=== PATIENT | male | born 1990 | race Caucasian/White ===

== ENCOUNTER 2017-11-25 08:05 | Day surgery (SDC) | payer OTHER ==
[~2017-11-25] VITALS: Ht 188 cm; Wt 93.0 kg
[~2017-11-25 08:05] MED LIST: ADVIL200 M1 PO; ALLEGRA60 MG PO; HYDROCODON-ACE1 EAC8 PO; IBUPROFEN800 MG PO; NORCO 10-325 T1 EACH PO; NORCO 5-325 TA1 EACH PO; OXYCODON-ACETA1 EAC2 PO; PERCOCET 5-3251 EACH PO
--- NOTE | 2017-11-25 09:48 | NUR ---
11/25/17 0948 Didi Vargas 0936 PT ARRIVED WITH ORAL AIRWAY IN PLACE. 0937 PHYSICIAN NON INVASIVE CARDIOLOGIST REMOVED AIRWAY AND PT MAINTAINING AIRWAY, RESP EVEN AND UNLABORED. PT SHIVERING, FIOR PAW WARMER TURNED ON AND PLACE UNDER BLACKET TO WARM PT. 0946 PT STOPPED SHIVERING AND ASLEEP. 0947 O2 REMOVED, O2 SAT 100%. PT DROWSY AND REORINETED TO PACU.
--- NOTE | 2017-11-25 10:55 | NUR ---
ICED WATER, CRACKERS AND SOUP GIVEN. PT EATS CRACKERS AND TOLERATES THAT WELL. MORE CRACKERS GIVEN. MORE ICED WATER GIVEN.
[2017-11-25] MEDS ORDERED: ULTRAM50 MG PO (11:09)
--- NOTE | 2017-11-25 11:42 | NUR ---
PT TOLERATES SOUP AND CRACKERS. DENIES NAUSEA. REPORTS PAIN IS "MUCH BETTER". PT UP TO BR W/RN STANDBY. PT AMBULATES W/LIMP AND IS STEADY AND DENIES DIZZINESS. PT REPORTS SUCCESSFUL VOID AND REQ DC HOME. VERBAL DC INSTRUCTIONS GIVEN IN PRESENCE OF SIG OTHER AND THEY BOTH VERBALIZE UNDERSTANDING OF THE INSTRUCTIONS.
--- NOTE | 2017-11-27 07:09 | OR ---
[facility] [address], [place] [address] Signed DATE OF OPERATION: 11/25/2017 SURGEON: Hallie Pan MD PREOPERATIVE DIAGNOSIS: Loose body, right knee. 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 PROCEDURES: Knee arthroscopy, removal of loose body, debridement of anterior horn medial meniscal tear and chondral changes over the medial femoral condyle. ANESTHESIA: General. SPECIMENS AND COMPLICATIONS: There were no specimens or complications. TOURNIQUET TIME: About 35 minutes. WHAT WAS DONE: The patient was taken to the operating room and placed on operating table in supine position. After anesthesia was induced, the airway secured. The patient was positioned, prepped and draped in a routine sterile fashion. The leg was exsanguinated with an Esmarch bandage. Pneumatic tourniquet was inflated to 300 mmHg. The outflow cannula was placed superomedially, the arthroscope anterolaterally. Using transillumination and a spinal needle for localization, an anterior medial portal was created. The nerve hook was introduced. Diagnostic arthroscopy revealed an unremarkable suprapatellar pouch. The medial recess was unremarkable. The medial compartment revealed residual of the OCD lesion and areas of grade 2 chondral foreign exchange dealer the area where the OCD have been previously repaired. The medial meniscus was unremarkable as was the medial tibial plateau. Intercondylar notch, ACL was unremarkable as was the PCL. The loose body was identified, but actually was trapped in moderate amount of synovial tissue. We used the motorized shaver to morselize the fragment and it was removed from the knee. The lateral compartment showed a small anterior horn tear of the lateral meniscus. This was debrided with a motorized shaver. Electronically Signed By: HALLIE PAN MD 11/27/17 0709 PATIENT NAME: DEACON ELIZABETH OPERATIVE REPORT DATE OF : [birth year] REPORT #: [id number] PHYSICIAN: HALLIE PAN MD PCP: ROBERTO BAGLEY MD REPORT IS CONFIDENTIAL AND NOT TO BE RELEASED WITHOUT AUTHORIZATION [facility] [address], [place] [address] Signed We then passed the scope through the intercondylar notch. There was nothing noted posteromedially or posterolaterally in the knee joint. We then maneuvered the scope into the lateral recess where there were no additional loose bodies. The knee was copiously irrigated and drained. The portals were closed and a sterile dressing applied. The patient was awakened to recovery room where arrived in stable condition. Counts were correct and antibiotic protocols were followed. Hallie Pan MD WFB/MODL /[id number] Copies: ~ Electronically Signed By: HALLIE PAN MD 11/27/17 0709 PATIENT NAME: DEACON ELIZABETH OPERATIVE REPORT DATE OF : [birth year] REPORT #: [id number] PHYSICIAN: HALLIE PAN MD PCP: ROBERTO BAGLEY MD REPORT IS CONFIDENTIAL AND NOT TO BE RELEASED WITHOUT AUTHORIZATION
== END 2017-11-25 11:55 | disposition home or self-care (01) ==
LOC: DS 08:05
PROVIDERS: Orthopaedic Surgery
PROC: 0SBC4ZZ Excision of Right Knee Joint, Percutaneous Endoscopic Approach (ICD-10-PCS; principal; 2017-11-25 09:00)
DX: S83.281A Other tear of lateral meniscus, current injury, right knee, initial encounter (principal); R41.3 Other amnesia
CPT/HCPCS: 01400; J0690; J1100; J1885; J2250; J2405; J2704; J3010; J7120

== ENCOUNTER 2019-01-21 12:14 | Emergency (ER) | payer OTHER ==
[~2019-01-21] VITALS: Ht 188 cm; Wt 88.5 kg
--- OUTSIDE RECORDS SUMMARY | ~2019-01-21 | XMS | Clinical Summary ---
Demographics + + + | Address | [address] | | | [place] [address] | + + + | Home Phone | | + + + | Preferred Language | Unknown | + + + | Marital Status | Single | + + + | Druze Affiliation | Unknown | + + + | Race | Unknown | + + + | Ethnic Group | Unknown | + + + Author + + + | Author | [facility] | | | and [place] | + + + | Organization | [facility] | | | and [place] | + + + | Address | Unknown | + + + | Phone | Unavailable | + + + Support + + +---------+ + | Name | Relationship | Address | Phone | + + +---------+ + | Elisa Sánchez | ECON | Unknown | | + + +---------+ + | Lars Sánchez | ECON | Unknown | | + + +---------+ + Care Team Providers + +------+ + | Care Electric Distribution Engineer Name | Role | Phone | + +------+ + | Conrad Boyce MD | PP | | + +------+ + Allergies No Known Allergies Medications + + + +---------+------+------+-------+ | Medication | Sig | Dispensed | Refills | Star | End | Statu | | | | | | t | Date | s | | | | | | Date | | | + + + +---------+------+------+-------+ | | Take 1 tablet by | | 0 | | | Activ | | oxyCODONE-acetaminop | mouth every 4 hours | | | | | e | | hen (PERCOCET) 5-325 | as needed for Pain. | | | | | | | mg per tablet | | | | | | | + + + +---------+------+------+-------+ Active Problems + + + | Problem | Noted Date | + + + | Chronic low back pain | 09/07/2014 | + + + | DDD (degenerative disc disease), lumbar - especially L5-S1 | 09/07/2014 | + + + | Facet arthritis of lumbar region | 09/07/2014 | + + + Family History + + +------+ + | Medical History | Relation | Name | Comments | + + +------+ + | Alcohol abuse | Father | | | + + +------+ + + +------+--------+ + | Relation | Name | Status | Comments | + +------+--------+ + | Father | | | | + +------+--------+ + Social History + +-------+ +--------+------+ | Tobacco Use | Types | Packs/Day | Years | Date | | | | | Used | | + +-------+ +--------+------+ | Never Smoker | | | | | + +-------+ +--------+------+ + + + | Sex Assigned at | Date Recorded | | | | + + + | Not on file | | + + + + + + + | Job Start Date | Occupation | Industry | + + + + | Not on file | Not on file | Not on file | + + + + + + + + | Travel History | Travel Start | Travel End | + + + + + + | No recent travel history available. | + + Last Filed Vital Signs + + + + | Vital Sign | Reading | Time Taken | + + + + | Blood Pressure | 158/89 | 07/31/20151654 PST | + + + + | Pulse | 97 | 07/31/20151654 PST | + + + + | Temperature | - | - | + + + + | Respiratory Rate | - | - | + + + + | Oxygen Saturation | - | - | + + + + | Inhaled Oxygen | - | - | | Concentration | | | + + + + | Weight | 90.7 kg (200 lb) | 07/06/20151532 PDT | + + + + | Height | 188 cm (6' 2") | 07/06/20151532 PDT | + + + + | Body Mass Index | 25.68 | 07/06/20151532 PDT | + + + + Plan of Treatment + + + + + | Health Maintenance | Due Date | Last Done | Comments | + + + + + | Vaccine: | | | | | Dtap/Tdap/Td (1 - | 1 | | | | Tdap) | | | | + + + + + | Vaccine: Influenza | | | | | (Season Ended) | 9 | | | + + + + + Results Not on filefrom Last 3 Months Insurance + +--------+ +--------+ +---------+--------+ | Payer | Benefi | Subscriber | Effect | Phone | Address | Type | | | t Plan | ID | khalida | | | | | | / | | Dates | | | | | | Group | | | | | | + +--------+ +--------+ +---------+--------+ | HEALTHCARE [employer]NT | HMA | [id number] | 09/29/19 | [phone] | | Indemn | | ADMIN | INDEMN | 9 | 04-Pre | 3 | | ity | | | ITY | | sent | | | | + +--------+ +--------+ +---------+--------+ + +--------+ +--------+ + + | Guarantor Name | Accoun | Relation to | Date | Phone | Billing Address | | | t Type | Patient | of | | | | | | | | | | + +--------+ +--------+ + + | Sg Vicente | Person | Self [birth year] | [address] | | | al/[place]aus[place] | | 1991 | [phone] | [place] | | | [place] | | | [address] (Home) | [address] | + +--------+ +--------+ + + Advance Directives Patient has advance care planning documents on file. For more information, please contact:[place] [address]
--- OUTSIDE RECORDS SUMMARY | ~2019-01-21 | XMS | Clinical Summary ---
Demographics + + + | Address | [address] | | | [place] [address] | + + + | Home Phone | | + + + | Preferred Language | Unknown | + + + | Marital Status | Single | + + + | Druze Affiliation | Unknown | + + + | Race | Unknown | + + + | Ethnic Group | Unknown | + + + Author + + + | Author | [facility] | + + + | Organization | [facility] | + + + | Address | Unknown | + + + | Phone | Unavailable | + + + Support + + +---------+ + | Name | Relationship | Address | Phone | + + +---------+ + | Contact,No | ECON | Unknown | | + + +---------+ + Care Team Providers + +------+ + | Care Branch Logistics Supervisor Name | Role | Phone | + +------+ + | Conrad Boyce MD | PP | | + +------+ + Allergies Not on File Current Medications + +------+-------+---------+------+------+-------+ | Prescription | Sig. | Disp. | Refills | Star | End | Statu | | | | | | t | Date | s | | | | | | Date | | | + +------+-------+---------+------+------+-------+ | | | | | 06/1 | | Activ | | oxyCODONE-acetaminop | | | | 6/20 | | e | | hen (PERCOCET) | | | | 16 | | | | 7.5-325 MG per | | | | | | | | tablet | | | | | | | + +------+-------+---------+------+------+-------+ Active Problems + + + | Problem | Noted Date | + + + | DDD (degenerative disc disease), lumbar | 03/20/2016 | + + + | Herniation of left side of L4-L5 intervertebral disc | 03/20/2016 | + + + | Facet arthropathy, lumbar | 03/20/2016 | + + + Social History + +-------+ +--------+------+ | Tobacco Use | Types | Packs/Day | Years | Date | | | | | Used | | + +-------+ +--------+------+ | Never Smoker | | | | | + +-------+ +--------+------+ + + +---------+ + | Alcohol Use | Drinks/We | oz/Week | Comments | | | ek | | | + + +---------+ + | Yes | | | | + + +---------+ + + + + | Sex Assigned at | Date Recorded | | | | + + + | Not on file | | + + + Last Filed Vital Signs + + + + | Vital Sign | Reading | Time Taken | + + + + | Blood Pressure | 122/79 | 03/20/2016 3:16 PM PDT | + + + + | Pulse | 96 | 03/20/2016 3:16 PM PDT | + + + + | Temperature | - | - | + + + + | Respiratory Rate | - | - | + + + + | Oxygen Saturation | - | - | + + + + | Inhaled Oxygen | - | - | | Concentration | | | + + + + | Weight | 93 kg (205 lb) | 03/20/2016 3:16 PM PDT | + + + + | Height | 188 cm (6' 2") | 03/20/2016 3:16 PM PDT | + + + + | Body Mass Index | 26.32 | 03/20/2016 3:16 PM PDT | + + + + Plan [...] Not on filefrom Last 3 Months Insurance +--------+--------+ +------+ +---------+ | Payer | Benefi | Subscriber | Type | Phone | Address | | | t Plan | ID | | | | | | / | | | | | | | Group | | | | | +--------+--------+ +------+ +---------+ | ASURIS | HMA | [id number] | | [phone] | | | INSURA | [phone] | [phone] | | | | NCE | | | | | +--------+--------+ +------+ +---------+ + +--------+ +--------+ + + | Guarantor Name | Accoun | Relation to | Date | Phone | Billing Address | | | t Type | Patient | of | | | | | | | | | | + +--------+ +--------+ + + | DEACON VICENTE | Person | Self [birth year] | Home: | [address] | | | al/Fam | | 1990 | [phone] | [place] | | | [place] | | | [phone] | [phone] | + +--------+ +--------+ + +
--- OUTSIDE RECORDS SUMMARY | ~2019-01-21 | XMS | Clinical Summary ---
Demographics + + + | Address | [address] | | | [place] [address] | + + + | Home Phone | | + + + | Preferred Language | Unknown | + + + | Marital Status | Single | + + + | Jehovah'S Witness Affiliation | LDS | + + + | Race | White | + + + | Ethnic Group | Not or | + + + Author + + + | Organization | Unknown | + + + | Address | Unknown | + + + | Phone | Unavailable | + + + Support + + +---------+ + | Name | Relationship | Address | Phone | + + +---------+ + | AILYN BUSTAMANTE | ECON | Unknown | | + + +---------+ + Care Team Providers + +------+ + | Care University Registrar Name | Role | Phone | + +------+ + PP | Unavailable | + +------+ + Source Comments STEPHANIE is fully live on both EpicCare Ambulatory and [facility] InPatient.[facility] Allergies Not on File Current Medications Not on file Active Problems Not on file Social History + +-------+ +--------+------+ | Tobacco Use | Types | Packs/Day | Years | Date | | | | | Used | | + +-------+ +--------+------+ | Never Assessed | | | | | + +-------+ +--------+------+ + + + | Sex Assigned at | Date Recorded | | | | + + + | Not on file | | + + + Plan of Treatment + + + + + | Health Maintenance | Due Date | Last Done | Comments | + + + + + | Influenza (Flu) | | | | | vaccination (#1) | 8 | | | + + + + + Results Not on filefrom Last 3 Months Insurance + +--------+ +------+ + + | Payer | Benefi | Subscriber | Type | Phone | Address | | | t Plan | ID | | | | | | / | | | | | | | Group | | | | | + +--------+ +------+ + + | [employer] | REGENC | [phone] | PPO | +- | [address] [address] [place] | | SHIELD | E BCBS | xxx | | [address] | [place], [place] | | | | | | | [phone] | + +--------+ +------+ + + | [employer] | HMA/RG | [phone] | PPO | +- | [address] [address] [place] | | SHIELD | A | | | [address] | [place], [place] | | | | | | | [phone] | + +--------+ +------+ + + + +--------+ +--------+ + + | Guarantor Name | Accoun | Relation to | Date | Phone | Billing Address | | | t Type | Patient | of | | | | | | | | | | + +--------+ +--------+ + + | AILYN BUSTAMANTE | Person | Parent | [birth year] | Home: | [address] | | | al/Fam | | 1964 | [phone] | [place] [address] | | | [place] | | | 1925 | | + +--------+ +--------+ + +"
--- OUTSIDE RECORDS SUMMARY | ~2019-01-21 | XMS | Clinical Summary ---
Demographics + + + | Address | [address] | | | [place] [address] | + + + | Home Phone | | + + + | Preferred Language | Unknown | + + + | Marital Status | Single | + + + | Judaism Affiliation | Unknown | + + + | Race | Unknown | + + + | Ethnic Group | Unknown | + + + Author + + + | Author | [facility] | | | and [place] | + + + | Organization | [facility] | | | and [...] Team Providers + +------+ + | Care Steam Plant Records Clerk Name | Role | Phone | + [...] +---------+--------+ | HEALTHCARE MGNT | HMA | [id number] | 09/29/19 | [phone] | | Indemn [...] | | al/Kaushik | | 1991 | [phone] | [place] | | | [place] | | | 9 (Home) | [address] | + +--------+ +--------+ + + Advance Directives Patient has advance care planning documents on file. For more information, please contact:[facility] [address]
--- OUTSIDE RECORDS SUMMARY | ~2019-01-21 | XMS | Clinical Summary ---
Demographics + + + | Address | [address] | | | [place] [address] | + + + | Home Phone | | + + + | Preferred Language | Unknown | + + + | Marital Status | Single | + + + | Confucianism Affiliation | Unknown | + + + | Race | Unknown | + + + | Ethnic Group | Unknown | + + + Author + + + | Author | [facility] | + + + | Organization | [facility] | + + + | Address | Unknown | + + + | Phone | Unavailable | + + + Support + + +---------+ + | Name | Relationship | Address | Phone | + + +---------+ + | Contact,No | ECON | Unknown | | + + +---------+ + Care Team Providers + +------+ + | Care Director Mortgage Name | Role | Phone | + [...] +------+ +---------+ | ASURIS | HMA | [id number] | | [phone] | | | [...] | | | [place] | | | [phone] | [phone] | + +--------+ +--------+ + +
--- OUTSIDE RECORDS SUMMARY | ~2019-01-21 | XMS | Clinical Summary ---
Demographics + + + | Address | [address] | | | [place] [address] | + + + | Home Phone | | + + + | Preferred Language | Unknown | + + + | Marital Status | Single | + + + | Denominational Affiliation | LDS | + + + [...] Team Providers + +------+ + | Care Aniline Press Worker Name | Role | Phone | + +------+ + PP | Unavailable | + +------+ + Source Comments STEPHANIE is fully live on both EpicCare Ambulatory and [facility] InPatient.[facility] Allergies Not on File Current Medications Not [...] | PPO | +- | [address] [address] [place] | | SHIELD | E BCBS | xxx | | [address] | [place], [place] | | | | | | | [phone] | + +--------+ +------+ + + | [employer] | HMA/RG | [phone] | PPO | +- | [address] [address] [place] | | SHIELD | A | | | [address] | [place], [place] | | | | | | | [phone] | + +--------+ +------+ + + + [...] | 1964 | [phone] | [place] [address] | | | [place] | | | 1925 | | + +--------+ +--------+ + +"
[~2019-01-21 12:14] MED LIST changes: +ULTRAM50 MG PO
== END 2019-01-21 13:32 | disposition home or self-care (01) ==
LOC: ED 12:14
PROC: 0XQQXZZ Repair Right Middle Finger, External Approach (ICD-10-PCS; principal; 2019-01-21)
DX: S61.212A Laceration without foreign body of right middle finger without damage to nail, initial encounter (principal); W26.9XXA Contact with unspecified sharp object(s), initial encounter; Y99.0 Civilian activity done for income or pay
CPT/HCPCS: 12001; 99282-25